=== PATIENT | female | born 1940 | race Caucasian/White ===

== ENCOUNTER 2016-03-24 14:22 | Emergency (ER) | payer BC, MEDICARE ==
[~2016-03-24] VITALS: Ht 165.1 cm; Wt 71.6 kg
[2016-03-24 14:26] VITALS: TEMP 36.4; Ht 165.1 cm; Wt 71.6 kg
[2016-03-24] MEDS ORDERED: ASPI-461 PO (15:09)
[2016-03-24] MEDS ORDERED: PROP80TA2 PO (15:09)
[2016-03-24] MEDS ORDERED: HYDR25TA4 PO (15:09)
[2016-03-24] MEDS ORDERED: BUTA1CAP18 PO (15:09)
[2016-03-24] MEDS ORDERED: APIX1TAB3 PO (15:09)
[2016-03-24] MEDS ORDERED: LISI-461 PO (15:09)
--- NOTE | 2016-03-24 15:09 | DIAGNOSTIC IMAGING REPORT ---
CHEST ONE VIEW PORTABLE CLINICAL HISTORY: Chest Pain dyspnea COMPARISON STUDY: No previous studies for comparison. FINDINGS: The bones soft tissues and hemidiaphragms are normal. The cardiomediastinal silhouette is normal. The lungs are clear. The pulmonary vasculature is normal. IMPRESSION: Negative chest. Electronically signed by: Zack Burks M.D. 03/24/2016 3:08 PM Dictated Date/Time: 03/24/2016 3:08 PM
[2016-03-24 15:25] LABS: BASO % 0.1 %; BASO ABS # 0.01 K/uL (0-0.2); COMPLETE YES; EOS % 0.9 %; HEMATOCRIT 36.6 % (37-47); IG% 0.2 %; LYMPH % 24.9 %; LYMPH ABS # 2.03 K/uL (1.2-3.4); MEAN CELL VOLUME 93.8 fL (80-100); MEAN CORPUSCULAR HEMOGLOBIN 32.1 pg (25-34); MEAN CORPUSCULAR HGB CONC 34.2 g/dl (32-36); MEAN PLATELET VOLUME 10.8 fL (7.4-10.4); MONO % 6.5 %; NEUT % 67.4 %; PLATELET COUNT 197 K/uL (130-400); WHITE BLOOD COUNT 8.16 K/uL (4.8-10.8)
[2016-03-24 15:41] LABS: BLOOD UREA NITROGEN 27 mg/dl (7-18); BUN/CREATININE RATIO 24.9 (10-20); CALCIUM 9.3 mg/dl (8.5-10.1); CARBON DIOXIDE 26 mmol/L (21-32); CHLORIDE 102 mmol/L (98-107); GLUCOSE 119 mg/dl (70-99); POTASSIUM 4.1 mmol/L (3.5-5.1); SODIUM 138 mmol/L (136-145)
[2016-03-24 15:46] LABS: CKMB/CK RATIO 3.6 (0-3.0)
[2016-03-24] MEDS ORDERED: OPTIRAY 320 IV PRN (16:00)
[2016-03-24] MEDS ORDERED: DIGOXIN IV 500 MCG in SYRINGE 8 ML IV ONE (16:15)
--- NOTE | 2016-03-24 16:26 | DIAGNOSTIC IMAGING REPORT ---
CT ANGIOGRAM OF THE CHEST CLINICAL HISTORY: Chest pain and difficulty breathing. Suspected pulmonary embolism. COMPARISON STUDY: Chest x-ray dated 03/24/2016 TECHNIQUE: Following the IV administration of 90 mL of Optiray-320, CT angiogram of the thorax was performed from the thoracic inlet to the lung bases utilizing the pulmonary embolus protocol. Images are reviewed in the axial, sagittal, and coronal planes. IV contrast was administered without complication. MIP imaging was performed. CT DOSE: 244.21 mGy.cm FINDINGS: No pathologically enlarged axillary mediastinal or hilar lymph nodes were visualized. There was no evidence of thoracic aortic dilatation. There were no pulmonary artery filling defects to indicate acute pulmonary embolism. No pleural effusions are visualized. There is lower lobe bronchial wall thickening and mucous plugging. There is no lobar consolidation. There is a 5 mm right upper lobe pulmonary nodule as visualized in image #[id number]. There is a 3 mm right upper lobe pulmonary nodule/lymph node as visualized in image #[id number]. There is cardiac enlargement. There is a left atrial enlargement. There is reflux of contrast into the hepatic veins suggesting elevated right heart pressures. There is is an old superior endplate T11 compression deformity IMPRESSION: 1. No CT evidence of acute pulmonary embolism 2. Lower lobe bronchial wall thickening and mucous plugging 3. 5 mm right upper lobe pulmonary nodule Please refer to below summary of Fleischner criteria recommendations for follow-up of incidental CT nodules (Adán Menendez, Guidelines for management of small pulmonary nodules detected on CT scans: A statement from the Fleischner Society, Radiology 237: [phone].) Low Risk Patient: Minimal or no smoking or other known risk factors for malignancy <=4 mm: No follow-up needed. >4-6 mm: Initial follow-up CT at 12 months; if unchanged, no further follow-up. >6-8 mm: Initial follow-up CT at 6-12 months then at 18-24 months if no change. >8 mm: Follow-up CT at \R\3, 9, 24 months, or PET and/or biopsy. High Risk Patient: History of smoking or other known risk factors <=4 mm: Follow-up at 12 months; if unchanged, no further follow-up. >4-6 mm: Initial follow-up CT at 6-12 months then at 18-24 months if no change. >6-8 mm: Initial follow-up CT at 3-6 months then at 9-12 and 24 months if no change. >8 mm: Same as low risk patient. Note: Nodule size measured as average of length and width. Ground glass or partly solid nodules may require longer follow-up to exclude indolent adenocarcinoma. Electronically signed by: Migue Bustillo M.D. 03/24/2016 4:25 PM Dictated Date/Time: 03/24/2016 4:18 PM
[2016-03-24 19:24] VITALS: BP 142/79; PULSE 123; O2SAT 98
--- NOTE | 2016-03-24 20:08 | EMERGENCY ROOM VISIT NOTE ---
History Report prepared by Faye: Mary Gutierrez Under the Supervision of: Dr. Clyde Sweet D.O. First contact with patient: 14:33 Chief Complaint: IRREGULAR HEARTBEAT Stated Complaint: BREATHING PROBLEMS WHEN EXITING, IN A-FIB Nursing Triage Summary: Pt reports c/o SOB with exertion Pt reports she has been in a fib for [address] told to come to ED if heart rate got too high History of Present Illness The patient is a 75 year old female who presents to the Emergency Room with complaints of persistent atrial fibrillation that began two weeks ago. The patient states that she has a history of atrial fibrillation, but states that she was never in it chronically, noting that she always came out of it on her own. She states that two weeks ago she went in to atrial fibrillation and stayed in it. The patient states that she has been on aspirin for the past several years, but states that two weeks ago she was started on Eloquis by her varnish filterer. She states that since the atrial fibrillation began, she has been feeling short of breath with exertion, has had leg weakness, and increased fatigue. The patient notes a history of hypertension as well, and states that she was once in ventricular tachycardia. She states that she is on Inderal 80 mg four times a day, Lisinopril 10-20 mg twice a day, and diuretic. Source of History: patient Onset: two weeks ago Position: other (global) Quality: other (atrial fibrillation) Timing: other (persistent) Associated Symptoms: + SOB (with exertion), + fatigue, + weakness (leg) Review of Systems See HPI for pertinent positives & negatives. A total of 10 systems reviewed and were otherwise negative. Past Medical & Surgical Medical Problems: (1) Hypertension Family History Patient reports no known family medical history. Social History Smoking Status: Never Smoker Marital Status: Housing Status: lives with significant other Occupation Status: retired Current/Historical Medications Scheduled Apixaban (Eliquis), 5 MG PO BID Aspirin (Aspirin), 80 MG PO DAILY Hydrochlorothiazide (Hctz), 25 MG PO QAM Lisinopril (Zestril), 10 MG PO BID Propranolol (Inderal), 80 MG PO QID Scheduled PRN Yhurcscjtl-Hpjbbudxstgcw-Qstbi (Fioricet/Codeine), 1 CAP PO DIRECTED PRN for Headache Allergies Coded Allergies: Olmesartan (Unverified Allergy, Severe, STROKE SYMPTOMS, 03/24/16) Metoprolol (Unverified Allergy, Unknown, UNKNOWN, 03/24/16) Moxifloxacin (Unverified Allergy, Unknown, UNKNOWN, 03/24/16) Procaine (Unverified Allergy, Unknown, UNKNOWN, 03/24/16) Uncoded Allergies: calcium blockers (Adverse Reaction, Unknown, TACHYCARDIA, 03/24/16) Physical Exam Vital Signs Date Time Temp Pulse Resp B/P Pulse Ox O2 Delivery O2 Flow Rate FiO2 03/24/16 19:24 123 18 142/79 98 Room Air 03/24/16 19:11 129 16 121/86 97 Room Air 03/24/16 18:19 123 16 03/24/16 18:18 146/80 03/24/16 18:14 102 19 03/24/16 18:13 123/88 03/24/16 18:09 119 15 109/95 03/24/16 18:04 124 19 133/76 03/24/16 17:59 122 18 03/24/16 17:58 121/104 03/24/16 17:54 129 23 99/68 03/24/16 17:49 118 16 119/93 03/24/16 17:44 145 20 03/24/16 17:39 135 18 128/99 03/24/16 17:34 113 20 03/24/16 17:33 130/94 03/24/16 17:29 126 19 03/24/16 17:28 128/111 03/24/16 17:24 116 19 03/24/16 17:23 134/106 03/24/16 17:19 114 18 123/101 03/24/16 17:14 115 22 133/67 03/24/16 17:09 133 16 03/24/16 17:08 104/76 03/24/16 17:04 135 15 114/86 03/24/16 16:59 113 16 120/94 03/24/16 16:54 113 23 94/67 03/24/16 16:49 109 20 123/106 03/24/16 16:44 133 36 03/24/16 16:40 137 03/24/16 16:39 115/97 03/24/16 16:37 117 14 97 03/24/16 16:33 129/103 03/24/16 16:32 145 14 03/24/16 16:31 113/94 03/24/16 15:59 131/80 03/24/16 15:57 124 12 03/24/16 15:52 127 15 03/24/16 15:47 130 18 03/24/16 15:42 118 13 03/24/16 15:37 119 31 03/24/16 15:32 135 18 03/24/16 15:28 119/91 03/24/16 15:27 133 23 03/24/16 15:22 135 16 03/24/16 15:22 121 03/24/16 15:10 125/93 03/24/16 14:26 36.4 113 18 128/69 100 Room Air Physical Exam GENERAL: Sitting up in bed, alert, well appearing, well nourished, no distress, non-toxic EYE EXAM: normal conjunctiva. OROPHARYNX: no exudate, no erythema, lips, buccal mucosa, and tongue normal and mucous membranes are moist NECK: No JVD. supple, no nuchal rigidity, no adenopathy, non-tender LUNGS: Clear to auscultation. Normal chest wall mechanics HEART: Tachycardic and irregularly irregular, S1 normal and S2 normal ABDOMEN: abdomen soft, non-tender, normo-active bowel sounds, no masses, no rebound or guarding. BACK: Back is symmetrical on inspection and there is no deformity, no midline tenderness, no CVA tenderness. SKIN: no rashes and no bruising UPPER EXTREMITIES: upper extremities are grossly normal. LOWER EXTREMITIES: No pitting edema. Calves are equal bilaterally. NEURO EXAM: Normal sensorium, cranial nerves II-XII grossly intact, normal speech, no gross weakness of arms, no gross weakness of legs. No drift. Finger to nose intact. Gross sensation intact. Medical Decision & Procedures ER Provider Diagnostic Interpretation: Xray results per the radiologist and my interpretation. Other results have been interpreted by the radiologist and reviewed by me. CHEST ONE VIEW PORTABLE CLINICAL HISTORY: Chest Pain dyspnea COMPARISON STUDY: No previous studies for comparison. FINDINGS: The bones soft tissues and hemidiaphragms are normal. The cardiomediastinal silhouette is normal. The lungs are clear. The pulmonary vasculature is normal. IMPRESSION: Negative chest. Electronically signed by: Zack Burks M.D. 03/24/2016 3:08 PM Dictated Date/Time: 03/24/2016 3:[address] ANGIOGRAM OF THE CHEST CLINICAL HISTORY: Chest pain and difficulty breathing. Suspected pulmonary embolism. COMPARISON STUDY: Chest x-ray dated 03/24/2016 TECHNIQUE: Following the IV administration of 90 mL of Optiray-320, CT angiogram of the thorax was performed from the thoracic inlet to the lung bases utilizing the pulmonary embolus protocol. Images are reviewed in the axial, sagittal, and coronal planes. IV contrast was administered without complication. MIP imaging was performed. CT DOSE: 244.21 mGy.cm FINDINGS: No pathologically enlarged axillary mediastinal or hilar lymph nodes were visualized. There was no evidence of thoracic aortic dilatation. There were no pulmonary artery filling defects to indicate acute pulmonary embolism. No pleural effusions are visualized. There is lower lobe bronchial wall thickening and mucous plugging. There is no lobar consolidation. There is a 5 mm right upper lobe pulmonary nodule as visualized in image #[id number]. There is a 3 mm right upper lobe pulmonary nodule/lymph node as visualized in image #[id number]. There is cardiac enlargement. There is a left atrial enlargement. There is reflux of contrast into the hepatic veins suggesting elevated right heart pressures. There is is an old superior endplate T11 compression deformity IMPRESSION: 1. No CT evidence of acute pulmonary embolism 2. Lower lobe bronchial wall thickening and mucous plugging 3. 5 mm right upper lobe pulmonary nodule Please refer to below summary of Fleischner criteria recommendations for follow-up of incidental CT nodules (Adán Menendez, Guidelines for management of small pulmonary nodules detected on CT scans: A statement from the Fleischner Society, Radiology 237: [phone].) Low Risk Patient: Minimal or no smoking or other known risk factors for malignancy <=4 mm: No follow-up needed. >4-6 mm: Initial follow-up CT at 12 months; if unchanged, no further follow-up. >6-8 mm: Initial follow-up CT at 6-12 months then at 18-24 months if no change. >8 mm: Follow-up CT at \R\3, 9, 24 months, or PET and/or biopsy. High Risk Patient: History of smoking or other known risk factors <=4 mm: Follow-up at 12 months; if unchanged, no further follow-up. >4-6 mm: Initial follow-up CT at 6-12 months then at 18-24 months if no change. >6-8 mm: Initial follow-up CT at 3-6 months then at 9-12 and 24 months if no change. >8 mm: Same as low risk patient. Note: Nodule size measured as average of length and width. Ground glass or partly solid nodules may require longer follow-up to exclude indolent adenocarcinoma. Electronically signed by: Migue Bustillo M.D. 03/24/2016 4:25 PM Dictated Date/Time: 03/24/2016 4:18 PM Laboratory Results 03/24/16 15:10 Red Blood Count 3.90, Mean Corpuscular Volume 93.8, Mean Corpuscular Hemoglobin 32.1, Mean Corpuscular Hemoglobin Concent 34.2, Mean Platelet Volume 10.8, Neutrophils (%) (Auto) 67.4, Lymphocytes (%) (Auto) 24.9, Monocytes (%) (Auto) 6.5, Eosinophils (%) (Auto) 0.9, Basophils (%) (Auto) 0.1, Neutrophils # (Auto) 5.50, Lymphocytes # (Auto) 2.03, Monocytes # (Auto) 0.53, Eosinophils # (Auto) 0.07, Basophils # (Auto) 0.01 03/24/16 15:10 Test 03/24/16 15:10 White Blood Count 8.16 K/uL (4.8-10.8) Red Blood Count 3.90 M/uL (4.2-5.4) Hemoglobin 12.5 g/dL (12.0-16.0) Hematocrit 36.6 % (37-47) Mean Corpuscular Volume 93.8 fL (80-100) Mean Corpuscular Hemoglobin 32.1 pg (25-34) Mean Corpuscular Hemoglobin Concent 34.2 g/dl (32-36) Platelet Count 197 K/uL (130-400) Mean Platelet Volume 10.8 fL (7.4-10.4) Neutrophils (%) (Auto) 67.4 % Lymphocytes (%) (Auto) 24.9 % Monocytes (%) (Auto) 6.5 % Eosinophils (%) (Auto) 0.9 % Basophils (%) (Auto) 0.1 % Neutrophils # (Auto) 5.50 K/uL (1.4-6.5) Lymphocytes # (Auto) 2.03 K/uL (1.2-3.4) Monocytes # (Auto) 0.53 K/uL (0.11-0.59) Eosinophils # (Auto) 0.07 K/uL (0-0.5) Basophils # (Auto) 0.01 K/uL (0-0.2) RDW Standard Deviation 45.4 fL (36.4-46.3) RDW Coefficient of Variation 13.3 % (11.5-14.5) Immature Granulocyte % (Auto) 0.2 % Immature Granulocyte # (Auto) 0.02 K/uL (0.00-0.02) D-Dimer 740 ug/L FEU (0-500) Anion Gap 10.0 mmol/L (3-11) Est Creatinine Clear Calc Drug Dose 44.5 ml/min Estimated GFR () 57.3 Estimated GFR (Non- 49.4 BUN/Creatinine Ratio 24.9 (10-20) Calcium Level 9.3 mg/dl (8.5-10.1) Total Creatine Kinase 42 U/L (26-192) Creatine Kinase MB 1.5 ng/ml (0.5-3.6) Creatine Kinase MB Ratio 3.6 (0-3.0) Troponin I < 0.015 ng/ml (0-0.045) Laboratory results per my review. Medications Administered Medications (Trade) Dose Ordered Sig/Dominique Route Start Time Stop Time Status Last Admin Dose Admin Digoxin/Syringe (Digoxin IV/ Syringe) 10 ml @ 2 mls/min NOW ONCE IV 03/24/16 16:15 03/24/16 16:19 DC 03/24/16 16:40 2 MLS/MIN ECG Indication: other (atrial fibrillation) Rate (beats per minute): 132 Rhythm: atrial fibrillation (with RVR) Findings: ST depression (Lateral), other (Septal Q waves) ED Course ED COURSE: Vital signs were reviewed and showed tachycardia The patients medical record was reviewed The above diagnostic studies were performed and reviewed. ED treatments and interventions as stated above. 1448: The patient was evaluated in room C8. A complete history and physical examination was performed. 1459: I discussed the patients case with Jesus [facility] BESSY. He states that he knows the patient well and is going to come see her. 1502: I reevaluated the patient and told her that Gisel Hanna PA-C will be in shortly to see her. 1556: I reevaluated the patient and she is doing okay. She is going to have CT PE. 1615: Ordered Digoxin 500 mcg/Syringe 10 ml @ 2 mls/min protocol IV. 1927: I reevaluated the patient. She would like to go home. Her heart rate is in the 110-119. 1930: Upon reevaluation, the patient is hemodynamically stable.I discussed my findings with the patient and she understands and agrees with the treatment plan. Based on the patients age, coexisting illnesses, exam and lab findings the decision to treat as an outpatient was made. The patient remained stable while under my care. The patient appeared well at the time of discharge. Medical Decision Differential diagnoses includes but is not limited to pneumonia, bronchitis, COPD/Asthma exacerbation, pneumothorax, pulmonary embolism, congestive heart failure, acute coronary syndrome Patient is a 75-year-old female who presents the ER for feeling weak and tired along with her heart racing. She has a history of A. fib which has been present for the past 2 weeks. She is placed on Eliquis and takes propranolol 80 mg 4 times a day. Upon presentation EKG clearly shows A. fib with RVR. Patient is completely a symptomatically had rest. CBC along with BMP and troponin were negative. D-dimer was positive and consequently CT PE was ordered. This did show a 5 mm right upper lobe nodule. I updated the patient regards to this. I personally wrote it down on her discharge instructions and instructed her to have this followed up on in 12 months. Both the and the patient and understood. Patient was evaluated by cardiology who gave her a dose of digoxin. Instructed to have her follow-up as an outpatient. Patient was comfortable. She is discharged with a heart rate in the 110s significantly better. She was offered admission but she declined. She is discharged home with a prescription for digoxin to follow-up with cardiology. Discussed with Pt concerning signs and symptoms to watch out for. Pt was instructed to follow up with their PCP and discussed with the patient their option to return to the ED at anytime for persistent or worsening symptoms. The appropriate anticipatory guidance and out-patient management, including indications for return to the emergency department, were explained at length to the patient and understood. Consults Time Called: [phone] Consulting Physician: Gisel Hanna PA-C Returned Call: [phone] I discussed the patients case with Gisel Hanna PA-C. He states that he knows the patient well and is going to come see her. Impression Primary Impression: Atrial fibrillation with RVR Additional Impression: Pulmonary nodule Scribe Attestation The scribe's documentation has been prepared under my direction and personally reviewed by me in its entirety. I confirm that the note above accurately reflects all work, treatment, procedures, and medical decision making performed by me. Departure Information Dispostion Home / Self-Care Referrals No Doctor, Assigned (PCP) Forms HOME CARE DOCUMENTATION FORM, IMPORTANT VISIT INFORMATION Patient Instructions ED Afib, [facility] Additional Instructions Please follow up with your cardiology with in the next 24 hours. Any worsening of your symptoms, please return to the ED immediately. This includes palpitations, lightheadedness, dizziness, chest pain, shortness of breath or any worsening of her symptoms. Please follow-up with cardiology as an outpatient and continue the digoxin as previously prescribed. Problem Qualifiers
--- NOTE | 2016-03-25 07:11 | CARDIOLOGY CONSULTATION REPORT ---
DATE OF CONSULTATION: 03/24/2016 HISTORY OF PRESENT ILLNESS: Mrs. Verdin is a 75-year-old white female with a history of paroxysmal atrial fibrillation, hypertension, multiple perceived medication intolerances, dyslipidemia, and a CHADS-VASc score of 4; who presented to [facility] Emergency Room complaining of dyspnea on exertion and profound fatigue. The patient has a history of paroxysmal atrial fibrillation for several years now. She presented to our office on 03/12/2016 complaining of recurrent atrial fibrillation over the preceding 4 days. I started her on Eliquis and increased her propranolol dosage. She has remained in atrial fibrillation to best of her knowledge since that time. Over the past couple of days she has had increasing exertional dyspnea, but no overt signs or symptoms of heart failure, most likely related to elevated ventricular response rate. The patient offers no other complaints. She is tolerating her anticoagulant without bleeding complications. She has not had any signs of symptoms of stroke or mini stroke. MEDICATIONS: 1. Eliquis 5 mg p.o. b.i.d. 2. Propranolol 80 mg q.i.d. 3. Aspirin 325 mg 2 tablets daily. 4. Hydrochlorothiazide 25 mg daily. 5. Lisinopril 10 mg twice a day. 6. Purinol p.r.n. 7. Retin-A external cream p.r.n. ALLERGIES: 1. ARBs. 2. AVELOX. 3. BENICAR. 4. NOVOCAIN. 5. PROCARDIA. 6. ZITHROMAX. 7. STATES THAT SHE HAS ALLERGY TO CALCIUM CHANNEL BLOCKERS, although she did not have an actual allergic reaction. 8. INTOLERANCE TO METOPROLOL AND ATENOLOL. PAST MEDICAL HISTORY: 1. Paroxysmal atrial fibrillation. 2. History of SVT. 3. Longstanding palpitations. 4. Hypertension. 5. Dyslipidemia. 6. Elevated CHADS-VASc score of 4. 7. She specifically denies any history of CAD, MD, CHF, rheumatic fever. No history of stroke or mini stroke. SOCIAL HISTORY: The patient is and lives with her in [place], [place]. She does not use tobacco or tobacco products. She is retired from work. FAMILY HISTORY: Significant for abdominal aortic aneurysm repair in her father. Lung cancer in her mother. PHYSICAL EXAMINATION: VITAL SIGNS: The patient is afebrile. Pulse rate is 130-140 beats per minute and irregularly irregular. Respiratory rate is 14 and unlabored. Blood pressure is 115/97. GENERAL: The patient is in no acute distress. HEENT: Head is atraumatic, normocephalic. EOMs intact. Sclerae anicteric. Facies symmetric. No perioral cyanosis. Mucous membranes moist. NECK: Without thyromegaly, adenopathy or JVD. CHEST AND LUNGS: Clear to auscultation throughout all lung carvajal. No wheezes, rales or rhonchi. CARDIOVASCULAR: S1 and S2 are irregularly irregular, tachycardic without obvious murmur, gallop or rub. PMI is nondisplaced. No lifts, heaves, or thrills. No abdominal, aortic or renal bruits. ABDOMEN: Bowel sounds present. No masses, organomegaly, or tenderness. EXTREMITIES: Without clubbing, cyanosis or edema. NEUROLOGIC: The patient is awake, alert, and oriented. Pleasant and cooperative. Answers questions appropriately. Speech is clear. Normal movement in all 4 extremities. Current telemetry monitoring reveals atrial fibrillation with elevated ventricular response rate. LABORATORY DATA: White blood cell count is 8.16, hemoglobin is 12.5 g/dL, hematocrit 36.6%, platelet count is 197,000. Sodium is 138 mmol/L, potassium 4.1 mmol/L, BUN is 27 mg/dL, creatinine is 1.10 mg/dL. Random glucose is 119 mg/dL. Total CK is 42 units per liter with respective CK-MB of 1.5 ng/mL. Troponin I is immeasurable less than 0.015 ng/mL. EKG on admission shows atrial flutter with variable AV conduction, left axis deviation, lateral ST and T wave abnormality. ASSESSMENT: 1. Paroxysmal Atrial Flutter/Atrial Fibrillation with elevated ventricular response rate. 2. Dyspnea on exertion, likely rate related. 3. Hypertension. 4. Dyslipidemia. 5. CHADS-VASc score of 4. PLAN: 1. I reassured the patient that her cardiac enzymes and electrolytes are within normal limits. 2. Chest x-ray shows no evidence of heart failure. 3. She is not having any angina pectoris or anginal equivalent symptoms. 4. Continue Propranolol 80 mg 4 times a day. 5. Continue Eliquis 5 mg b.i.d. 6. The patient refuses any calcium channel blockers. Therefore, she was given IV Digoxin 500 mcg in the emergency room, and if her heart rate is adequately controlled at the time of discharge, she will begin oral digoxin tomorrow 250 mcg daily for 2 days, then 125 mcg daily thereafter. If heart rate is still markedly elevated despite the addition of digoxin or patient is still symptomatic, we would recommend overnight hospitalization with QUINTIN tomorrow and elective electrical cardioversion if no evidence of atrial thrombus. 7. Otherwise, patient will be discharged to home later today, and has a followup appointment with me on 04/08/2016, at which time we will arrange for an elective outpatient electrical cardioversion if she is still in an abnormal atrial rhythm. The patient and her verbalized understanding of this discussion and agreed with this plan. NANDO
[2016-11-07] MEDS ORDERED: DIGO0.2519 PO (15:26)
[2016-11-07] MEDS ORDERED: RTNACR2515 TOP (15:26)
[2016-11-07] MEDS ORDERED: BUTA30CA12 PO (15:26)
[2016-11-13] MEDS ORDERED: HYDR-5688 PO (07:24)
== END 2016-03-24 19:47 | disposition home or self-care (01) ==
LOC: C.EDB 14:26 → C.EDC 19:47
DX: I48.0 Paroxysmal atrial fibrillation (principal); R91.1 Solitary pulmonary nodule; I10 Essential (primary) hypertension; Z79.82 Long term (current) use of aspirin; Z79.01 Long term (current) use of anticoagulants; R79.1 Abnormal coagulation profile

== ENCOUNTER → 2016-04-08 | Outpatient (CLI) | payer MEDICARE ==
[~2016-04-08] MED LIST: APIX1TAB3 PO; ASPI-461 PO; BUTA1CAP18 PO; BUTA30CA12 PO; DIGO0.2519 PO; HYDR-5688 PO; HYDR25TA4 PO; LISI-461 PO; PROP80TA2 PO; RTNACR2515 TOP
== END | disposition home or self-care (01) ==
LOC: C.LAB1850 15:12
PROVIDERS: ATTEND Internal Medicine
DX: I48.91 Unspecified atrial fibrillation (principal); I47.1 Supraventricular tachycardia

== ENCOUNTER 2016-11-12 05:42 | Observation (INO) | payer MEDICARE ==
[2016-11-07 15:26] VITALS: BMI 22.0
[2016-11-12] VITALS (11 sets, daily range): BP systolic 107–132; BP diastolic 50–76; PULSE 56–77; TEMP 35.8–36.8; O2SAT 91–100; Ht 165.1 cm; Wt 64.5 kg
[~2016-11-12] VITALS: Ht 165.1 cm; Wt 64.5 kg
[~2016-11-12 05:42] MED LIST changes: -ASPI-461 PO; -BUTA1CAP18 PO; -HYDR-5688 PO
[2016-11-12] MEDS ORDERED: LACTATED RINGER'S 1000ML 1,000 ML IV SCH (06:00)
[2016-11-12] MEDS ORDERED: CEFUROXIME IV 1,500 MG in DEXTROSE 5% 100ML IV SCH (06:00)
[2016-11-12] MEDS ORDERED: LISI-461 PO (06:08)
[2016-11-12] MEDS ORDERED: DEXAMETHASONE SOD INJ 4 MG/ML VIAL ONE (07:41)
[2016-11-12] MEDS ORDERED: MIDAZOLAM HCL 1 MG/ML 2ML VIAL ONE (07:41)
[2016-11-12] MEDS ORDERED: FENTANYL CITRATE INJ 50 MCG/1 ML 2 ML VIAL ONE ×2 (07:41)
[2016-11-12] MEDS ORDERED: GLYCOPYRROLATE INJ 0.2 MG/ML VIAL ONE ×2 (07:41→08:37)
[2016-11-12] MEDS ORDERED: LIDOCAINE HCL 2% 2 ML VIAL (20MG/ML) ONE (07:41)
[2016-11-12] MEDS ORDERED: PROPOFOL IV EMULSION 10 MG/ML 20 ML VIAL IV ONE (07:41)
[2016-11-12] MEDS ORDERED: ONDANSETRON INJ 2 MG/ML 2 ML VIAL ONE (07:41)
[2016-11-12] MEDS ORDERED: NEOSTIGMINE METHYLSULFATE 5 MG/5 ML SYR ONE (07:41)
--- NOTE | 2016-11-12 08:00 | History & Physical Bridge Note ---
H&P Re-Evaluation Bridge Note: I have examined the patient, reviewed the History & Physical and in the interval since the performance of the History & Physical I have noted the following changes of clinical significance: No changes noted
[2016-11-12] MEDS ORDERED: CONRAY 60% 50 ML VIAL ONE (08:01)
[2016-11-12] MEDS ORDERED: BUPIVACAINE 0.5 % 5 MG/1 ML MPF 30ML VIAL ONE (08:01)
[2016-11-12] MEDS ORDERED: EpHEDrine SULFATE INJ 50 MG/ML AMP IV PRN (08:30)
[2016-11-12] MEDS ORDERED: PHENYLEPHRINE 100MCG/ML 5ML SYR IV PRN (08:30)
[2016-11-12] MEDS ORDERED: ATROPINE SULFATE 0.1 MG/ML 5ML SYR IV PRN (08:30)
[2016-11-12] MEDS ORDERED: ONDANSETRON INJ 2 MG/ML 2 ML VIAL IV PRN ×2 (08:30→09:15)
[2016-11-12] MEDS ORDERED: PHENYLEPHRINE 100MCG/ML 5ML SYR ONE (08:36)
[2016-11-12] MEDS ORDERED: ROCURONIUM BROMIDE 10 MG/ML 5 ML VIAL IV ONE (08:36)
[2016-11-12] MEDS ORDERED: LARYING-O-JET KIT (LTA) ONE ×2 (09:02)
--- NOTE | 2016-11-12 09:07 | [facility] Operative Report ---
Operative Report Operative Date Nov 12, 2016. Pre-Operative Diagnosis Chronic Cholecystitis Post-Operative Diagnosis Same as preoperative Procedure(s) Performed Laparoscopic Cholecystectomy Surgeon Dr. Madan Dia Brush Or Broom Cutter Surgeon(s) Jennifer Cano PA-C Estimated Blood Loss 10ml Findings large stones and chronic dz Specimens A.) Gallbladder and contents Anesthesia gen Complication(s) None Disposition Recovery Room / PACU I attest to the content of the Intraoperative Record and any orders documented therein. Any exceptions are noted below.
[2016-11-12] MEDS ORDERED: MoRPHine SULFATE 2 MG/ML CARP IV PRN (09:15)
[2016-11-12] MEDS ORDERED: PROMETHAZINE HCL INJ 25 MG in SODIUM CHLORIDE 0.9% 50ML 50 ML IV PRN (09:15)
[2016-11-12] MEDS ORDERED: MoRPHine SULFATE 4 MG/ML 1 ML CARP\\VIAL IV PRN (09:15)
[2016-11-12] MEDS: HYDROmorphone INJ 2 MG/ML SYR/VIAL IV PRN ×4 (09:23→09:55)
[2016-11-12] MEDS ORDERED: IV FLUIDS COMPLETED PRN (09:45)
[2016-11-12] MEDS ORDERED: PROMETHAZINE HCL INJ 12.5 MG in SODIUM CHLORIDE 0.9% 50ML 50 ML IV PRN (10:00)
--- NOTE | 2016-11-12 10:28 | Anesthesiology Progress Note ---
Anesthesia Post Op Note Date & Time Nov 12, 2016 at 10:25 Vital Signs Pain Intensity: 2 Vital Signs Past 12 Hours Date Time Temp Pulse Resp B/P (MAP) Pulse Ox O2 Delivery O2 Flow Rate FiO2 11/12/16 10:15 36.2 62 16 130/55 100 Nasal Cannula 2 11/12/16 10:05 36.2 57 16 108/53 100 Nasal Cannula 2 11/12/16 09:55 36.2 50 16 120/67 100 Nasal Cannula 2 11/12/16 09:45 60 16 125/63 98 Nasal Cannula 2 11/12/16 09:35 52 16 117/81 100 Nasal Cannula 2 11/12/16 09:25 65 16 117/68 100 Oxymask 10 11/12/16 09:19 36.2 65 16 122/56 100 Oxymask 10 11/12/16 06:09 36.4 71 18 128/76 (93) 100 Room Air Notes Mental Status: alert / awake / arousable, participated in evaluation Pt Amnestic to Procedure: Yes Nausea / Vomiting: adequately controlled Pain: adequately controlled Airway Patency, RR, SpO2: stable & adequate BP & HR: stable & adequate Hydration State: stable & adequate Anesthetic Complications: no major complications apparent The patient complained of chest pressure and when questioned about associated symptoms she changed her story and pointed to her bandage and said that is where the pressure is. The pain resolved with 0.5 mg of dilaudid. She had no other symptoms.
[2016-11-12] MEDS: LACTATED RINGER'S 1000ML 1,000 ML IV SCH (11:01)
--- NOTE | 2016-11-12 11:33 | OPERATIVE REPORT ---
DATE OF OPERATION: 11/12/2016 NAME OF OPERATION: Laparoscopic cholecystectomy. PREOPERATIVE DIAGNOSIS: Chronic cholecystitis. POSTOPERATIVE DIAGNOSIS: Same. STAFF SURGEON: Dr. Madan Dia. FORMULATOR COMPOUNDER: Jennifer Cano PA-C ANESTHESIA: General. DESCRIPTION OF PROCEDURE: The patient was brought into the operating room and placed on the operating table in supine position. Her abdomen was prepped and draped in the usual fashion. Using 0.5% plain Marcaine, skin and subcutaneous tissue were anesthetized at all incisions. Incision was made above the umbilicus, carrying dissection down to the fascia, placing a Veress needle, and producing pneumoperitoneum. An 11-mm port was placed at this level and then under visualization, three 5-mm ports were placed, 1 cephalad and 2 laterally. Gallbladder was very large and distended. It was retracted. It was aspirated of bile. There were large stones within the gallbladder. Dissection was carried out at the reid hepatis, identifying chronic inflammation and thickened scar tissue. Cystic duct and cystic artery were identified, clipped and transected. There was a second branch of the artery, which was clipped and transected. The gallbladder was then dissected away from the liver bed in the usual fashion and placed in an Endobag. After appropriate irrigation and hemostasis, the Endobag was removed through the umbilical site. I did have to enlarge the fascial defect to remove the stones and also barely, I was able to remove them through the skin incision. At this point, the fascia was closed using interrupted 0 Vicryl suture. Skin was reapproximated using 5-0 Prolene suture and the patient transferred to recovery room in stable condition. I attest to the content of the Intraoperative Record and any orders documented therein. Any exception s are noted below.
--- NOTE | 2016-11-12 12:01 | History and Physical ---
History & Physical Date of Service Nov 12, 2016. History & Physical chest pain rule out acs chronic cholecystitis s/p lap mel [id number]
[2016-11-12 12:30] LABS: BASO % 0.2 %; BASO ABS # 0.02 K/uL (0-0.2); COMPLETE YES; EOS % 0.5 %; HEMATOCRIT 35.8 % (37-47); IG% 0.4 %; LYMPH % 13.8 %; LYMPH ABS # 1.18 K/uL (1.2-3.4); MEAN CELL VOLUME 92.7 fL (80-100); MEAN CORPUSCULAR HEMOGLOBIN 32.1 pg (25-34); MEAN CORPUSCULAR HGB CONC 34.6 g/dl (32-36); MEAN PLATELET VOLUME 9.9 fL (7.4-10.4); MONO % 1.1 %; PLATELET COUNT 214 K/uL (130-400); RED BLOOD COUNT 3.86 M/uL (4.2-5.4); WHITE BLOOD COUNT 8.52 K/uL (4.8-10.8)
--- NOTE | 2016-11-12 12:33 | DIAGNOSTIC IMAGING REPORT ---
CHEST ONE VIEW PORTABLE CLINICAL HISTORY: chest pain rule out acs dyspnea COMPARISON STUDY: 03/24/2016 FINDINGS: Mild stable cardiomegaly. Lungs are clear. Diaphragms smooth. IMPRESSION: Mild stable cardia megaly. Otherwise negative study. The above report was generated using voice recognition software. It may contain grammatical, syntax or spelling errors. Electronically signed by: Zack Burks M.D. 11/12/2016 12:31 PM Dictated Date/Time: 11/12/2016 12:30 PM
[2016-11-12] MEDS: PROPRANOLOL HCL 80 MG TAB PO SCH ×2 (12:37→18:07)
[2016-11-12 12:50] LABS: BUN/CREATININE RATIO 19.3 (10-20); CALCIUM 9.2 mg/dl (8.5-10.1); CREATININE 0.81 mg/dl (0.60-1.20); MAGNESIUM 1.9 mg/dl (1.8-2.4); PHOSPHORUS 3.2 mg/dl (2.5-4.9); POTASSIUM 4.2 mmol/L (3.5-5.1)
--- NOTE | 2016-11-12 12:54 | INTERNAL MEDICINE CONSULTATION ---
DATE OF ADMISSION: 11/12/2016 This is level 3 inpatient consultation, 35 minutes. PHYSICIAN REQUESTING CONSULTATION: Dr. Dia. REASON FOR CONSULTATION: Medical management. HISTORY OF PRESENT ILLNESS: The patient is a 75-year-old white female with a significant past medical history of paroxysmal atrial fibrillation, history of SVT, hypertension, dyslipidemia on blood thinner for stroke prevention who was admitted to Dr. Dia's service because of chronic cholecystitis. The patient had laparoscopic cholecystectomy which was done this morning. When I interviewed with her, she reported she has heavy chest like elephant sitting on her chest after procedures. No chest pain. Has some uncomfortable, no difficulty breathing, no racing heart or palpitations. No fever or chills, no nausea, vomiting, abdominal pain, diarrhea or constipation, denied dysuria, urgency or frequencies. Denied blurry vision, double vision. Denied facial droop, slurry speeches or local weakness. Mild dry cough, no sputum, denied skin rashes, The patient reported chest tightness after procedures, has been lasting about 1-2 hours, not getting any how better, not getting anything worse, no nausea. PAST MEDICAL HISTORY: Like I mentioned above, paroxysmal atrial fibrillation, history of SVT, history of hypertension, dyslipidemia. Afib on Eliquis for stroke prevention. SOCIAL HISTORY: The patient is and lives with . Denied alcohol abuse disorder, denied illicit drug abuse. FAMILY HISTORY: Significant for abdominal aortic aneurysm repair in her father and her mother has lung cancer. REVIEW OF SYSTEMS: Please see HPI, otherwise 14-point organized system review was negative. MEDICATIONS: Taking at home which include; 1. Eliquis 5 mg p.o. b.i.d. 2. Fiorinal with Codeine 1 cap p.o. use as directed. 3. Digoxin 250 mcg p.o. q.a.m. 4. HCTZ 25 mg p.o. q.a.m. 5. Lisinopril 10 mg p.o. t.i.d. 6. Inderal 80 mg p.o. q.i.d. 7. Retin-A 0.025% use as needed. PHYSICAL EXAMINATION: VITAL SIGNS: Temperature is 36.4, pulse 68, respirations 16, blood pressure 123/76, pulse ox was 96% on room air. GENERAL: The patient is a white female, awake, alert and oriented, conversational, follows all commands. No acute distress. HEAD: Normocephalic. EYES: Pupils equal, round responds to light. EARS: Normal. NOSE: Normal. NECK: Supple. Thyroid no enlargement. Trachea midline. HEART: Regular rhythm. S1, S2. No murmurs. LUNGS: Decreased breathing sounds. There was no wheezing, rhonchi or crackles. ABDOMEN: Soft, nontender. Bowel sound was positive. LOWER EXTREMITIES: No swelling. Homans sign was negative. GENITOURINARY AND RECTAL: Deferred. SKIN: Has no rashes. NEUROLOGICAL: Cranial nerves II-XII were intact. There was no local deficit. LABORATORY STUDIES: The patient has no admission labs, but has a recent lab in the computer on 03/24/2016: WBC 8.6, hemoglobin 12, platelets 196. D-dimer was 740. Sodium 138, BUN 27, creatinine 1.1. Calcium 9.3. Cardiac enzyme; troponin was negative. Digoxin level was 1.8. On 03/24/2016, chest CT shows no PE. There was a 5-mm right upper lobe lung nodule. ASSESSMENT AND PLAN: A 75-year-old white female with the conditions below: 1. Chronic cholecystitis status post laparoscopic cholecystectomy. The pain control, diet, PT, OT, discharge plan and anticoagulation will be per primary team. I would recommend to restart Eliquis as soon as possible. 2. Chest tightness reported with elephant sitting on her chest. Differential diagnosis include ACS, PE and acute pulmonary disease. Therefore, I will transfer her to tele floor, cardiac enzyme troponin and labs stat. Portable chest x-ray and EKG, and check cardiac enzyme troponin x2 sets more, at the same time, I will check digoxin level as well and I will follow up. At home, patient was on digoxin, Eliquis, and propranolol. I saw the primary team has started this medication already, we will follow up. 3. History of hypertension, currently blood pressure is fairly controlled. 4. History of atrial fibrillation, on Eliquis, we will continue tele monitoring, and continue current medications, and recommend restart Eliquis as soon as possible. Thank you for the chance to involve in the care of the patient. We will continue to follow up. NANDO
[2016-11-12] MEDS: LISINOPRIL 10 MG TAB PO SCH ×2 (13:22→18:07)
[2016-11-12] MEDS: HYDROCODONE/ACETAMOPHEN 5/325MG TAB PO PRN ×2 (13:24→18:09)
[2016-11-12] MEDS ORDERED: OPTIRAY 320 IV PRN (15:00)
[2016-11-12] MEDS: CEFUROXIME IV 1,500 MG in DEXTROSE 5% 100ML 100 ML IV SCH (16:43)
[2016-11-12 18:44] LABS: CKMB/CK RATIO 1.1 (0-3.0)
[2016-11-12] MEDS: HEPARIN SOD 5000 UNIT/0.5 ML CARP SQ SCH (20:57)
--- NOTE | 2016-11-12 21:41 | DIAGNOSTIC IMAGING REPORT ---
CT ANGIOGRAM OF THE CHEST CLINICAL HISTORY: Atypical chest pain COMPARISON STUDY: 03/24/2016 TECHNIQUE: Following the IV administration of 97 mL of Optiray-320, CT angiogram of the thorax was performed from the thoracic inlet to the lung bases utilizing the pulmonary embolus protocol. Images are reviewed in the axial, sagittal, and coronal planes. IV contrast was administered without complication. MIP imaging was performed. A dose lowering technique was utilized adhering to the principles of ALARA. CT DOSE: 200.80 mGy.cm FINDINGS: No pathologically enlarged axillary mediastinal or hilar lymph nodes were visualized. There was no evidence of thoracic aortic dilatation. There were no pulmonary artery filling defects to indicate acute pulmonary embolism. No pleural effusions are visualized. There are bibasal atelectatic changes. There are no areas of parenchymal consolidation to indicate a pneumonia. There is a stable 5 mm right upper lobe pulmonary nodule. There is a stable 3 mm right upper lobe pulmonary nodule/lymph node. There is free intraperitoneal air. Please correlate with any history of recent surgery. IMPRESSION: 1. No CT evidence of acute pulmonary embolism 2. Stable 5 mm and 3 mm right upper lobe pulmonary nodules 3. No evidence of focal pulmonary consolidation to indicate a pneumonia 4. Free intraperitoneal air. Please correlate with any recent history of surgery. Electronically signed by: Migue Bustillo M.D. 11/12/2016 9:40 PM Dictated Date/Time: 11/12/2016 9:35 PM
[2016-11-12] MEDS ORDERED: NURSING VERBAL MED ORDER ONE (21:45)
[2016-11-13] MEDS: CEFUROXIME IV 1,500 MG in DEXTROSE 5% 100ML 100 ML IV SCH ×2 (00:26→08:28)
[2016-11-13] MEDS: PROPRANOLOL HCL 80 MG TAB PO SCH ×3 (00:27→11:39)
[2016-11-13] MEDS: HYDROCODONE/ACETAMOPHEN 5/325MG TAB PO PRN ×2 (00:34→05:42)
[2016-11-13 02:06] LABS: CKMB/CK RATIO 1.4 (0-3.0)
[2016-11-13 04:48] VITALS: BP 116/63; PULSE 82; TEMP 36.4; O2SAT 95
[2016-11-13] MEDS: LACTATED RINGER'S 1000ML 1,000 ML IV SCH (05:07)
[2016-11-13 05:43] LABS: HEMATOCRIT 33.9 % (37-47); MEAN CELL VOLUME 92.9 fL (80-100); MEAN CORPUSCULAR HEMOGLOBIN 32.6 pg (25-34); MEAN CORPUSCULAR HGB CONC 35.1 g/dl (32-36); MEAN PLATELET VOLUME 9.8 fL (7.4-10.4); PLATELET COUNT 216 K/uL (130-400); RED BLOOD COUNT 3.65 M/uL (4.2-5.4); WHITE BLOOD COUNT 11.62 K/uL (4.8-10.8)
[2016-11-13 06:29] LABS: ALT/SGPT 24 U/L (12-78); AST/SGOT 20 U/L (15-37); BLOOD UREA NITROGEN 14 mg/dl (7-18); BUN/CREATININE RATIO 16.2 (10-20); CALCIUM 8.8 mg/dl (8.5-10.1); CARBON DIOXIDE 29 mmol/L (21-32); CHLORIDE 97 mmol/L (98-107); CREATININE 0.87 mg/dl (0.60-1.20); GLUCOSE 107 mg/dl (70-99); POTASSIUM 3.8 mmol/L (3.5-5.1); SODIUM 134 mmol/L (136-145)
[2016-11-13 06:32] LABS: ALB/GLOB RATIO 0.8 (0.9-2); ALKALINE PHOSPHATASE 83 U/L (45-117); CHOLESTEROL 171 mg/dl (0-200); CHOLESTEROL/HDL RATIO 4.4; HDL CHOLESTEROL 39 mg/dl; LDL CHOLESTEROL CALCULATED 66 mg/dl; TRIGLYCERIDES 331 mg/dl (0-150); VERY LOW DENSITY LIPOPROT CALC 66 mg/dl
--- NOTE | 2016-11-13 07:23 | Surgery Progress Note ---
Surgery Progress Note Date of Service Nov 13, 2016. Subjective awake, alert- no distress, no chest pain cardiac labs appear normal, CT chest neg for PE She wants to go home Objective Vital Signs: Date Time Temp Pulse Resp B/P (MAP) Pulse Ox O2 Delivery O2 Flow Rate FiO2 11/13/16 04:51 Room Air 11/13/16 04:48 36.4 82 17 116/63 (80) 95 Room Air 11/13/16 00:37 Room Air 11/12/16 23:27 36.6 77 16 122/71 (88) 95 Room Air 11/12/16 20:06 36.6 73 20 118/56 (76) 99 Room Air 11/12/16 20:00 Room Air 11/12/16 16:44 36.5 57 20 127/53 (77) 91 Room Air 11/12/16 16:00 Room Air 11/12/16 13:55 36.8 66 16 132/64 (86) 96 Room Air 11/12/16 13:19 36.4 61 16 132/71 (91) 97 Room Air 11/12/16 12:30 36.4 61 16 125/76 (92) 97 Room Air 11/12/16 12:07 36.3 68 16 97 11/12/16 11:38 36.3 68 16 123/76 (92) 97 Room Air 11/12/16 11:00 36.4 56 16 125/50 (75) 99 Room Air 11/12/16 10:30 35.8 62 18 107/67 (80) 100 Nasal Cannula 2.0 11/12/16 10:30 100 Nasal Cannula 2.0 11/12/16 10:30 Nasal Cannula 2.0 11/12/16 10:15 36.2 62 16 130/55 100 Nasal Cannula 2 11/12/16 10:05 36.2 57 16 108/53 100 Nasal Cannula 2 11/12/16 09:55 36.2 50 16 120/67 100 Nasal Cannula 2 11/12/16 09:45 60 16 125/63 98 Nasal Cannula 2 11/12/16 09:35 52 16 117/81 100 Nasal Cannula 2 11/12/16 09:25 65 16 117/68 100 Oxymask 10 11/12/16 09:19 36.2 65 16 122/56 100 Oxymask 10 General Appearance: no apparent distress Respiratory/Chest: no respiratory distress Abdomen: soft Incision(s): dry, intact Laboratory Results: Results Past 24 Hours Test 11/12/16 12:05 11/12/16 17:53 11/13/16 01:24 11/13/16 05:31 Range/Units White Blood Count 8.52 11.62 4.8-10.8 K/uL Red Blood Count 3.86 3.65 4.2-5.4 M/uL Hemoglobin 12.4 11.9 12.0-16.0 g/dL Hematocrit 35.8 33.9 37-47 % Mean Corpuscular Volume 92.7 92.9 80-100 fL Mean Corpuscular Hemoglobin 32.1 32.6 25-34 pg Mean Corpuscular Hemoglobin Concent 34.6 35.1 32-36 g/dl Platelet Count 214 216 130-400 K/uL Mean Platelet Volume 9.9 9.8 7.4-10.4 fL Neutrophils (%) (Auto) 84.0 % Lymphocytes (%) (Auto) 13.8 % Monocytes (%) (Auto) 1.1 % Eosinophils (%) (Auto) 0.5 % Basophils (%) (Auto) 0.2 % Neutrophils # (Auto) 7.16 1.4-6.5 K/uL Lymphocytes # (Auto) 1.18 1.2-3.4 K/uL Monocytes # (Auto) 0.09 0.11-0.59 K/uL Eosinophils # (Auto) 0.04 0-0.5 K/uL Basophils # (Auto) 0.02 0-0.2 K/uL RDW Standard Deviation 41.3 41.5 36.4-46.3 fL RDW Coefficient of Variation 12.2 12.2 11.5-14.5 % Immature Granulocyte % (Auto) 0.4 % Immature Granulocyte # (Auto) 0.03 0.00-0.02 K/uL D-Dimer 930 0-500 ug/L FEU Sodium Level 134 134 136-145 mmol/L Potassium Level 4.2 3.8 3.5-5.1 mmol/L Chloride Level 98 97 98-107 mmol/L Carbon Dioxide Level 29 29 21-32 mmol/L Anion Gap 7.0 8.0 3-11 mmol/L Blood Urea Nitrogen 16 14 7-18 mg/dl Creatinine 0.81 0.87 0.60-1.20 mg/dl Est Creatinine Clear Calc Drug Dose 54.8 51.0 ml/min Estimated GFR () 82.9 76.1 Estimated GFR (Non- 71.5 65.6 BUN/Creatinine Ratio 19.3 16.2 10-20 Random Glucose 119 107 70-99 mg/dl Calcium Level 9.2 8.8 8.5-10.1 mg/dl Phosphorus Level 3.2 2.5-4.9 mg/dl Magnesium Level 1.9 1.8-2.4 mg/dl Total Creatine Kinase 73 94 103 26-192 U/L Troponin I < 0.015 < 0.015 < 0.015 0-0.045 ng/ml Digoxin Level 1.9 0.8-2.0 ng/ml Creatine Kinase MB 1.0 1.4 0.5-3.6 ng/ml Creatine Kinase MB Ratio 1.1 1.4 0-3.0 Total Bilirubin 0.4 0.2-1 mg/dl Direct Bilirubin < 0.1 0-0.2 mg/dl Aspartate Amino Transf (AST/SGOT) 20 15-37 U/L Alanine Aminotransferase (ALT/SGPT) 24 12-78 U/L Alkaline Phosphatase 83 45-117 U/L Total Protein 7.1 6.4-8.2 gm/dl Albumin 3.2 3.4-5.0 gm/dl Globulin 3.9 2.5-4.0 gm/dl Albumin/Globulin Ratio 0.8 0.9-2 Triglycerides Level 331 0-150 mg/dl Cholesterol Level 171 0-200 mg/dl HDL Cholesterol 39 mg/dl LDL Cholesterol, Calculated 66 mg/dl VLDL Cholesterol, Calculated 66 mg/dl Cholesterol/HDL Ratio 4.4 Assessment & Plan 11/13/16- s/p lap mel, had chest pressurein RR- no evidence of cardiac event from what I can see- adv diet, chg dressings, po meds, sub cu Heparin for now. Ok for d/c home from surgical standpoint- will see what med team thinks. If home can begin Castro hanson.
[2016-11-13] MEDS ORDERED: HYDR-5688 PO (07:24)
--- NOTE | 2016-11-13 07:28 | Discharge Instructions ---
Discharge Instructions Date of Service Nov 13, 2016. Admission Reason for Admission: Cholelithiasis W/Cholecystitis Discharge Discharge Diagnosis / Problem: chronic cholecystitis Discharge Goals Goal(s): Decrease discomfort, Improve function, Improve disease control Activity Recommendations Activity Limitations: as noted below Lifting Limitations: no more than 25 pounds Exercise/Sports Limitations: until after follow-up appointment May Resume Sexual Activity: when tolerated Shower/Bathe: tomorrow Driving or Machine Use: resume 3 days after discharge SPECIAL CARE INSTRUCTIONS: * Cover incisions and change daily for comfort/drainage. may begin 11/13- if at home or 11/14 - depending on discharge * May use ibuprofen for pain as tolerated. * Expect some swelling and bruising. Call your doctor if: * Temperature above 101 degrees * Pain not relieved by pain medicine ordered * There is increased drainage or redness from any incision * You have any unanswered questions or concerns [phone]. FOLLOW UP VISIT: If not already scheduled, please call the office for a follow-up visit. for next week- some suture removal OFFICE PHONE NUMBER: Dr. Dia Office . Current Hospital Diet Patient's current hospital diet: Regular Diet Discharge Diet Recommended Diet: Regular Diet Procedures Procedures Performed: Laparoscopic Cholecystectomy Pending Studies Studies pending at discharge: no Laboratory Results Lipid Panel Test 11/13/16 05:31 Range/Units Triglycerides Level 331 H 0-150 mg/dl Cholesterol Level 171 0-200 mg/dl HDL Cholesterol 39 mg/dl Cholesterol/HDL Ratio 4.4 LDL Cholesterol, Calculated 66 mg/dl Medical Emergencies . Who to Call and When: Medical Emergencies: If at any time you feel your situation is an emergency, please call 911 immediately. . Non-Emergent Contact Non-Emergency issues call your: Primary Care Provider, Surgeon . "Provider Documentation" section prepared by Madan Dia. . VTE Core Measure Inpt VTE Proph given/why not?: Unfractionated heparin SQ, SCD's
[2016-11-13 07:37] VITALS: BP 119/68; PULSE 59; TEMP 36.6; O2SAT 96
--- NOTE | 2016-11-13 08:04 | Anesthesiology Progress Note ---
Anesthesia Post Op Note Date & Time Nov 13, 2016 at 08:03 Vital Signs Pain Intensity: 8.0 Vital Signs Past 12 Hours Date Time Temp Pulse Resp B/P (MAP) Pulse Ox O2 Delivery O2 Flow Rate FiO2 11/13/16 07:37 36.6 59 18 119/68 (85) 96 Room Air 11/13/16 04:51 Room Air 11/13/16 04:48 36.4 82 17 116/63 (80) 95 Room Air 11/13/16 00:37 Room Air 11/12/16 23:27 36.6 77 16 122/71 (88) 95 Room Air 11/12/16 20:06 36.6 73 20 118/56 (76) 99 Room Air Notes Mental Status: alert / awake / arousable, participated in evaluation Pt Amnestic to Procedure: Yes Nausea / Vomiting: adequately controlled Pain: adequately controlled Airway Patency, RR, SpO2: stable & adequate BP & HR: stable & adequate Hydration State: stable & adequate Anesthetic Complications: no major complications apparent
[2016-11-13] MEDS: LISINOPRIL 10 MG TAB PO SCH (08:26)
[2016-11-13] MEDS: HEPARIN SOD 5000 UNIT/0.5 ML CARP SQ SCH (08:29)
--- NOTE | 2016-11-13 08:41 | Progress Note ---
Subjective Date of Service: Nov 13, 2016. Subjective Pt evaluation today including: conversation w/ patient, physical exam, lab review, review of studies, conversation w/ hospice care sales consultant, review of inpatient medication list Pain: no chest pain today PO Intake: adequate Voiding: no voiding problems patient doing very well this AM, no further episodes of chest pain or pressure in hindsight, the patient feels that the pressure she was feeling may have been from the insulfation from laparoscopic surgery reviewed labs, troponin negative, CTA negative for PE, normal EKG, no arrhythmia on monitor okay for d/c from medical perspective Problem List Medical Problems: (1) Atrial fibrillation with RVR Status: Acute (2) Pulmonary nodule Status: Acute Review of Systems Abdomen: + pain All Other Systems: Reviewed and Negative Medications Current Inpatient Medications Medications (Trade) Dose Ordered Sig/Dominique Route Start Time Stop Time Status Last Admin Dose Admin Digoxin (Lanoxin Tab) 0.25 mg DAILY@1600 PO 11/13/16 16:00 12/13/16 15:59 Hydrochlorothiazide (Hydrochlorothiazide Tab) 25 mg QAM PO 11/13/16 09:00 12/13/16 08:59 11/13/16 08:26 25 MG Lisinopril (Zestril Tab) 10 mg TID PO 11/12/16 14:00 12/12/16 13:59 11/13/16 08:26 10 MG Lactated Ringer's 1,000 ml @ 50 mls/hr Q20H IV 11/12/16 09:07 12/12/16 09:06 11/13/16 05:07 50 MLS/HR Cefuroxime Sodium 1500 mg/Dextrose 115 ml @ 200 mls/hr Q8H IV 11/12/16 16:00 11/13/16 15:59 11/13/16 08:28 200 MLS/HR Heparin Sodium (Porcine) (Heparin Sq 5000 Unit/0.5ml) 5,000 unit Q12H SQ 11/12/16 21:00 11/13/16 09:00 11/12/16 20:57 5,000 UNIT Acetaminophen/ Hydrocodone Bitart ([place] 5/325 Tab) 1 tab Q4 PRN PO 11/12/16 09:15 11/26/16 09:14 11/12/16 18:09 1 TAB Acetaminophen/ Hydrocodone Bitart ([place] 5/325 Tab) 2 tab Q4 PRN PO 11/12/16 09:15 11/26/16 09:14 11/13/16 05:42 2 TAB Morphine Sulfate (MoRPHine SULFATE INJ) 2 mg Q4H PRN IV 11/12/16 09:15 11/26/16 09:14 Morphine Sulfate (MoRPHine SULFATE INJ) 4 mg Q4H PRN IV 11/12/16 09:15 11/26/16 09:14 Promethazine HCl 25 mg/Sodium Chloride 51 ml @ 204 mls/hr Q6H PRN IV 11/12/16 09:15 12/12/16 09:14 Ondansetron HCl (Zofran Inj) 4 mg Q6H PRN IV 11/12/16 09:15 12/12/16 09:14 Miscellaneous (Iv Fluids Completed) 1 ea PRN PRN N/A 11/12/16 09:45 11/12/17 09:44 Promethazine HCl 12.5 mg/Sodium Chloride 50.5 ml @ 204 mls/hr Q6H PRN IV 11/12/16 10:00 12/12/16 09:59 Ioversol (Optiray 320) 100 ml UD PRN IV 11/12/16 15:00 11/16/16 14:59 Propranolol HCl (Inderal Tab) 80 mg Q6 PO 11/13/16 00:00 12/13/16 00:00 11/13/16 05:42 80 MG Heparin Sodium (Porcine) (Heparin Sq 5000 Unit/0.5ml) 5,000 unit Q8 SQ 11/13/16 14:00 12/13/16 13:59 Objective Vital Signs Date Time Temp Pulse Resp B/P (MAP) Pulse Ox O2 Delivery O2 Flow Rate FiO2 11/13/16 07:37 36.6 59 18 119/68 (85) 96 Room Air 11/13/16 04:51 Room Air 11/13/16 04:48 36.4 82 17 116/63 (80) 95 Room Air 11/13/16 00:37 Room Air 11/12/16 23:27 36.6 77 16 122/71 (88) 95 Room Air 11/12/16 20:06 36.6 73 20 118/56 (76) 99 Room Air 11/12/16 20:00 Room Air 11/12/16 16:44 36.5 57 20 127/53 (77) 91 Room Air 11/12/16 16:00 Room Air 11/12/16 13:55 36.8 66 16 132/64 (86) 96 Room Air 11/12/16 13:19 36.4 61 16 132/71 (91) 97 Room Air 11/12/16 12:30 36.4 61 16 125/76 (92) 97 Room Air 11/12/16 12:07 36.3 68 16 97 11/12/16 11:38 36.3 68 16 123/76 (92) 97 Room Air 11/12/16 11:00 36.4 56 16 125/50 (75) 99 Room Air 11/12/16 10:30 35.8 62 18 107/67 (80) 100 Nasal Cannula 2.0 11/12/16 10:30 100 Nasal Cannula 2.0 11/12/16 10:30 Nasal Cannula 2.0 11/12/16 10:15 36.2 62 16 130/55 100 Nasal Cannula 2 11/12/16 10:05 36.2 57 16 108/53 100 Nasal Cannula 2 11/12/16 09:55 36.2 50 16 120/67 100 Nasal Cannula 2 11/12/16 09:45 60 16 125/63 98 Nasal Cannula 2 11/12/16 09:35 52 16 117/81 100 Nasal Cannula 2 11/12/16 09:25 65 16 117/68 100 Oxymask 10 11/12/16 09:19 36.2 65 16 122/56 100 Oxymask 10 Physical Exam General Appearance: WD/WN, no apparent distress Eyes: normal inspection, EOMI, sclerae normal ENT: normal ENT inspection, hearing grossly normal, pharynx normal Neck: supple, no adenopathy, no JVD, trachea midline Respiratory/Chest: chest non-tender, lungs clear, normal breath sounds, no respiratory distress, no accessory muscle use Cardiovascular: regular rate, rhythm, no edema, no gallop, no JVD, no murmur Abdomen: normal bowel sounds, soft, no organomegaly, + tenderness (mild, around incisions) Extremities: normal range of motion, non-tender, normal inspection, no pedal edema, no calf tenderness, pelvis stable Neurologic/Psychiatric: php web developer II-XII nml as tested, no motor/sensory deficits, alert, normal mood/affect, oriented x 3 Skin: normal color, warm/dry, no rash Lymphatic: no adenopathy Laboratory Results Last 24 Hours Test 11/12/16 12:05 11/12/16 17:53 11/13/16 01:24 11/13/16 05:31 White Blood Count 8.52 K/uL 11.62 K/uL Red Blood Count 3.86 M/uL 3.65 M/uL Hemoglobin 12.4 g/dL 11.9 g/dL Hematocrit 35.8 % 33.9 % Mean Corpuscular Volume 92.7 fL 92.9 fL Mean Corpuscular Hemoglobin 32.1 pg 32.6 pg Mean Corpuscular Hemoglobin Concent 34.6 g/dl 35.1 g/dl Platelet Count 214 K/uL 216 K/uL Mean Platelet Volume 9.9 fL 9.8 fL Neutrophils (%) (Auto) 84.0 % Lymphocytes (%) (Auto) 13.8 % Monocytes (%) (Auto) 1.1 % Eosinophils (%) (Auto) 0.5 % Basophils (%) (Auto) 0.2 % Neutrophils # (Auto) 7.16 K/uL Lymphocytes # (Auto) 1.18 K/uL Monocytes # (Auto) 0.09 K/uL Eosinophils # (Auto) 0.04 K/uL Basophils # (Auto) 0.02 K/uL RDW Standard Deviation 41.3 fL 41.5 fL RDW Coefficient of Variation 12.2 % 12.2 % Immature Granulocyte % (Auto) 0.4 % Immature Granulocyte # (Auto) 0.03 K/uL D-Dimer 930 ug/L FEU Sodium Level 134 mmol/L 134 mmol/L Potassium Level 4.2 mmol/L 3.8 mmol/L Chloride Level 98 mmol/L 97 mmol/L Carbon Dioxide Level 29 mmol/L 29 mmol/L Anion Gap 7.0 mmol/L 8.0 mmol/L Blood Urea Nitrogen 16 mg/dl 14 mg/dl Creatinine 0.81 mg/dl 0.87 mg/dl Est Creatinine Clear Calc Drug Dose 54.8 ml/min 51.0 ml/min Estimated GFR () 82.9 76.1 Estimated GFR (Non- 71.5 65.6 BUN/Creatinine Ratio 19.3 16.2 Random Glucose 119 mg/dl 107 mg/dl Calcium Level 9.2 mg/dl 8.8 mg/dl Phosphorus Level 3.2 mg/dl Magnesium Level 1.9 mg/dl Total Creatine Kinase 73 U/L 94 U/L 103 U/L Troponin I < 0.015 ng/ml < 0.015 ng/ml < 0.015 ng/ml Digoxin Level 1.9 ng/ml Creatine Kinase MB 1.0 ng/ml 1.4 ng/ml Creatine Kinase MB Ratio 1.1 1.4 Total Bilirubin 0.4 mg/dl Direct Bilirubin < 0.1 mg/dl Aspartate Amino Transf (AST/SGOT) 20 U/L Alanine Aminotransferase (ALT/SGPT) 24 U/L Alkaline Phosphatase 83 U/L Total Protein 7.1 gm/dl Albumin 3.2 gm/dl Globulin 3.9 gm/dl Albumin/Globulin Ratio 0.8 Triglycerides Level 331 mg/dl Cholesterol Level 171 mg/dl HDL Cholesterol 39 mg/dl LDL Cholesterol, Calculated 66 mg/dl VLDL Cholesterol, Calculated 66 mg/dl Cholesterol/HDL Ratio 4.4 Assessment and Plan 75 yo female s/p lap cholecystectomy for chronic cholecystitis - s/p lap mel: pain controlled, eating well, + flatus cleared for d/c by surgery, instructions completed - chest pain: occurred in PACU, described as a pressure CTA negative for PE EKG without signs of ischemia, troponin negative cleared for discharge from medical perspective - atrial fibrillation: rates controlled, resume Curly hanson discussed this specifically with patient okay with Dr. Dia
[2016-11-13] MEDS ORDERED: HYDROCHLOROTHIAZIDE 25 MG TAB PO SCH (09:00)
[2016-11-13 09:26] VITALS: BP 119/68; PULSE 59; TEMP 36.6; O2SAT 96
[2016-11-13 11:06] VITALS: BP 123/68; PULSE 78; TEMP 36.3; O2SAT 99
[2016-11-13] MEDS ORDERED: HEPARIN SOD 5000 UNIT/0.5 ML CARP SQ SCH (14:00)
[2016-11-13] MEDS ORDERED: DIGOXIN 0.25 MG TAB PO SCH (16:00)
--- NOTE | 2016-11-18 11:05 | Discharge Summary ---
Discharge Summary Date of Service Nov 18, 2016. Admission Date/Reason Nov 12, 2016 at 09:11 Cholelithiasis W/Cholecystitis. Discharge Date/Disposition Nov 13, 2016 Home Diagnosis Principal Diagnosis: Cholelithiasis with Cholecystitis Procedure(s) Performed Laparoscopic Cholecystectomy. Admission Physical Exam As per Admitting History & Physical. Hospital Course Patient with past medical history significant for Atrial fibrillation on Eliquis entered hospital for elective Laparoscopic Cholecystectomy with Dr. Madan Dia. Post-operatively patient developed chest pain/pressure in PACU. Patient was admitted for cardiac workup- troponin negative, chest CT negative for PE. Patient was seen by Hospitalist team for management- moved to [facility]. POD #1 patient felt better, denied chest pain or pressure. Tolerated advanced diet, pain was controlled. SQ Heparin administered. Patient was deemed suitable for discharge per surgical team and hospitalist team. Patient discharged to home. Eliquis restarted evening of POD #1. Follow-up instructions provided to patient. Patient to follow-up in General Surgery clinic with Dr. Dia 1-2 weeks after discharge. Discharge Instructions Please refer to the electronic Patient Visit Report (Discharge Instructions) for additional information.
== END 2016-11-13 14:18 | disposition home or self-care (01) ==
LOC: C.ACU 05:42 → C.MSW 09:11 → ENRESERV 09:44 → C.2E 13:41
PROVIDERS: ADMIT Surgery; ATTEND Surgery
DX: K80.10 Calculus of gallbladder with chronic cholecystitis without obstruction (principal); I47.1 Supraventricular tachycardia; I48.91 Unspecified atrial fibrillation; I10 Essential (primary) hypertension; E78.5 Hyperlipidemia, unspecified; K05.20 Aggressive periodontitis, unspecified; K05.10 Chronic gingivitis, plaque induced; D55.9 Anemia due to enzyme disorder, unspecified; Z79.01 Long term (current) use of anticoagulants; Z79.899 Other long term (current) drug therapy